=== PATIENT | male | born 1955 | race Caucasian/White ===

== ENCOUNTER 2016-09-22 07:51 | Outpatient (CLI) | payer OTHER | END 2016-09-22 07:52 | disposition home or self-care (01) | DX: I48.91 Unspecified atrial fibrillation (principal); Z95.2 Presence of prosthetic heart valve ==

== ENCOUNTER 2016-10-20 07:36 | Outpatient (CLI) | payer OTHER | END 2016-10-20 07:37 | disposition home or self-care (01) | LOC: LAB 07:36 | PROVIDERS: ATTEND Internal Medicine | DX: I48.91 Unspecified atrial fibrillation (principal); Z95.2 Presence of prosthetic heart valve | CPT/HCPCS: 85610 ==

== ENCOUNTER 2016-11-17 07:42 | Outpatient (CLI) | payer OTHER | END 2016-11-17 07:43 | disposition home or self-care (01) | DX: I48.91 Unspecified atrial fibrillation (principal); Z95.2 Presence of prosthetic heart valve ==

== ENCOUNTER 2016-12-15 07:40 | Outpatient (CLI) | payer OTHER | END 2016-12-15 07:41 | disposition home or self-care (01) | DX: I48.91 Unspecified atrial fibrillation (principal); Z95.2 Presence of prosthetic heart valve ==

== ENCOUNTER 2017-01-19 07:37 | Outpatient (CLI) | payer OTHER | END 2017-01-19 07:38 | disposition home or self-care (01) | LOC: LAB 07:37 | PROVIDERS: ATTEND Internal Medicine | DX: I48.91 Unspecified atrial fibrillation (principal); Z95.2 Presence of prosthetic heart valve | CPT/HCPCS: 85610 ==

== ENCOUNTER 2017-02-13 08:01 | Outpatient (CLI) | payer OTHER | END 2017-02-13 08:02 | disposition home or self-care (01) | LOC: LAB 08:01 | PROVIDERS: ATTEND Internal Medicine | DX: I48.91 Unspecified atrial fibrillation (principal); Z95.2 Presence of prosthetic heart valve | CPT/HCPCS: 85610 ==

== ENCOUNTER 2017-03-27 07:35 | Outpatient (CLI) | payer OTHER | END 2017-03-27 07:36 | disposition home or self-care (01) | LOC: LAB 07:35 | PROVIDERS: ATTEND Internal Medicine | DX: I48.91 Unspecified atrial fibrillation (principal); Z95.2 Presence of prosthetic heart valve | CPT/HCPCS: 85610 ==

== ENCOUNTER 2017-05-08 07:46 | Outpatient (CLI) | payer OTHER | END 2017-05-08 07:47 | disposition home or self-care (01) | LOC: LAB 07:46 | PROVIDERS: ATTEND Internal Medicine | DX: I48.91 Unspecified atrial fibrillation (principal); Z95.2 Presence of prosthetic heart valve | CPT/HCPCS: 85610 ==

== ENCOUNTER 2017-06-19 08:03 | Outpatient (CLI) | payer OTHER | END 2017-06-19 08:04 | disposition home or self-care (01) | LOC: LAB 08:03 | PROVIDERS: ATTEND Internal Medicine | DX: I48.91 Unspecified atrial fibrillation (principal); Z95.2 Presence of prosthetic heart valve | CPT/HCPCS: 85610 ==

== ENCOUNTER 2017-08-14 08:26 | Outpatient (CLI) | payer OTHER | END 2017-08-14 08:27 | disposition home or self-care (01) | LOC: LAB 08:26 | PROVIDERS: ATTEND Internal Medicine | DX: I48.91 Unspecified atrial fibrillation (principal) | CPT/HCPCS: 85610 ==

== ENCOUNTER 2017-08-28 08:10 | Outpatient (CLI) | payer OTHER | END 2017-08-28 08:11 | disposition home or self-care (01) | LOC: LAB 08:10 | PROVIDERS: ATTEND Family Medicine | DX: I48.91 Unspecified atrial fibrillation (principal); Z95.2 Presence of prosthetic heart valve; Z51.81 Encounter for therapeutic drug level monitoring; Z79.01 Long term (current) use of anticoagulants | CPT/HCPCS: 85610 ==

== ENCOUNTER 2017-10-16 07:42 | Outpatient (CLI) | payer OTHER | END 2017-10-16 07:43 | disposition home or self-care (01) | LOC: LAB 07:42 | PROVIDERS: ATTEND Family Medicine | DX: I48.91 Unspecified atrial fibrillation (principal); Z95.2 Presence of prosthetic heart valve; Z51.81 Encounter for therapeutic drug level monitoring; Z79.01 Long term (current) use of anticoagulants | CPT/HCPCS: 85610 ==

== ENCOUNTER 2017-11-27 08:00 | Outpatient (CLI) | payer OTHER | END 2017-11-27 08:01 | disposition home or self-care (01) | LOC: LAB 08:00 | PROVIDERS: ATTEND Family Medicine | DX: I48.91 Unspecified atrial fibrillation (principal); Z95.2 Presence of prosthetic heart valve; Z51.81 Encounter for therapeutic drug level monitoring; Z79.01 Long term (current) use of anticoagulants | CPT/HCPCS: 85610 ==

== ENCOUNTER 2018-01-08 07:45 | Outpatient (CLI) | payer OTHER | END 2018-01-08 07:46 | disposition home or self-care (01) | LOC: LAB 07:45 | PROVIDERS: ATTEND Family Medicine | DX: I48.91 Unspecified atrial fibrillation (principal); Z95.2 Presence of prosthetic heart valve; Z51.81 Encounter for therapeutic drug level monitoring; Z79.01 Long term (current) use of anticoagulants | CPT/HCPCS: 85610 ==

== ENCOUNTER 2018-02-12 08:06 | Outpatient (CLI) | payer OTHER | END 2018-02-12 08:07 | disposition home or self-care (01) | LOC: LAB 08:06 | PROVIDERS: ATTEND Family Medicine | DX: I48.91 Unspecified atrial fibrillation (principal); Z95.2 Presence of prosthetic heart valve; Z51.81 Encounter for therapeutic drug level monitoring; Z79.01 Long term (current) use of anticoagulants | CPT/HCPCS: 85610 ==

== ENCOUNTER 2018-03-26 07:42 | Outpatient (CLI) | payer OTHER | END 2018-03-26 07:43 | disposition home or self-care (01) | LOC: LAB 07:42 | PROVIDERS: ATTEND Family Medicine | DX: I48.91 Unspecified atrial fibrillation (principal); Z95.2 Presence of prosthetic heart valve; Z51.81 Encounter for therapeutic drug level monitoring; Z79.01 Long term (current) use of anticoagulants | CPT/HCPCS: 85610 ==

== ENCOUNTER 2018-05-07 07:47 | Outpatient (CLI) | payer OTHER | END 2018-05-07 07:48 | disposition home or self-care (01) | LOC: LAB 07:47 | PROVIDERS: ATTEND Family Medicine | DX: I48.91 Unspecified atrial fibrillation (principal) | CPT/HCPCS: 85610 ==

== ENCOUNTER 2018-05-25 10:19 | Outpatient (CLI) | payer OTHER | END 2018-05-25 10:20 | disposition home or self-care (01) | LOC: LAB.F 10:19 | PROVIDERS: ATTEND Family Medicine | DX: I48.91 Unspecified atrial fibrillation (principal) | CPT/HCPCS: 85610 ==

== ENCOUNTER 2018-06-25 08:30 | Outpatient (CLI) | payer OTHER | END 2018-06-25 08:31 | disposition home or self-care (01) | LOC: LAB.F 08:30 | PROVIDERS: ATTEND Family Medicine | DX: I48.91 Unspecified atrial fibrillation (principal) | CPT/HCPCS: 85610 ==

== ENCOUNTER 2018-07-23 13:46 | Outpatient (CLI) | payer OTHER ==
[2018-07-23 18:05] LABS: INR 3.3 (0.8-1.2); PT - PROTHROMBIN TIME 36.4 secs (9.9-12.6)
== END 2018-07-23 13:47 | disposition home or self-care (01) ==
LOC: LAB.F 13:46
PROVIDERS: ATTEND Family Medicine
DX: I48.91 Unspecified atrial fibrillation (principal); Z51.81 Encounter for therapeutic drug level monitoring; Z79.01 Long term (current) use of anticoagulants
CPT/HCPCS: 36415; 85610

== ENCOUNTER 2018-08-13 08:30 | Outpatient (CLI) | payer OTHER | END 2018-08-13 08:31 | disposition home or self-care (01) | LOC: LAB.F 08:30 | PROVIDERS: ATTEND Family Medicine | DX: I48.91 Unspecified atrial fibrillation (principal) | CPT/HCPCS: 85610 ==

== ENCOUNTER 2018-10-25 08:19 | Outpatient (CLI) | payer OTHER | END 2018-10-25 08:20 | disposition home or self-care (01) | LOC: LAB.F 08:19 | PROVIDERS: ATTEND Family Medicine | DX: I48.91 Unspecified atrial fibrillation (principal) | CPT/HCPCS: 85610 ==

== ENCOUNTER 2018-12-06 08:53 | Outpatient (CLI) | payer OTHER | END 2018-12-06 08:54 | disposition home or self-care (01) | LOC: LAB.F 08:53 | PROVIDERS: ATTEND Family Medicine | DX: I48.91 Unspecified atrial fibrillation (principal) | CPT/HCPCS: 85610 ==

== ENCOUNTER 2018-12-13 07:52 | Outpatient (CLI) | payer OTHER | END 2018-12-13 07:53 | disposition home or self-care (01) | LOC: LAB.F 07:52 | PROVIDERS: ATTEND Family Medicine | DX: I48.91 Unspecified atrial fibrillation (principal) | CPT/HCPCS: 85610 ==

== ENCOUNTER 2019-01-03 07:54 | Outpatient (CLI) | payer OTHER | END 2019-01-03 07:55 | disposition home or self-care (01) | LOC: LAB.F 07:54 | PROVIDERS: ATTEND Family Medicine | DX: I48.91 Unspecified atrial fibrillation (principal) | CPT/HCPCS: 85610 ==

== ENCOUNTER 2019-01-17 07:30 | Outpatient (CLI) | payer OTHER | END 2019-01-17 07:31 | disposition home or self-care (01) | LOC: LAB.F 07:30 | PROVIDERS: ATTEND Family Medicine | DX: I48.91 Unspecified atrial fibrillation (principal) | CPT/HCPCS: 85610 ==

== ENCOUNTER 2019-01-31 07:35 | Outpatient (CLI) | payer OTHER | END 2019-01-31 07:36 | disposition home or self-care (01) | LOC: LAB.F 07:35 | PROVIDERS: ATTEND Family Medicine | DX: I48.91 Unspecified atrial fibrillation (principal) | CPT/HCPCS: 85610 ==

== ENCOUNTER 2019-02-21 08:10 | Outpatient (CLI) | payer OTHER | END 2019-02-21 08:11 | disposition home or self-care (01) | LOC: LAB.F 08:10 | PROVIDERS: ATTEND Family Medicine | DX: I48.91 Unspecified atrial fibrillation (principal) | CPT/HCPCS: 85610 ==

== ENCOUNTER 2019-03-07 07:49 | Outpatient (CLI) | payer OTHER | END 2019-03-07 07:50 | disposition home or self-care (01) | LOC: LAB.F 07:49 | PROVIDERS: ATTEND Family Medicine | DX: I48.91 Unspecified atrial fibrillation (principal) | CPT/HCPCS: 85610 ==

== ENCOUNTER 2019-04-04 07:59 | Outpatient (CLI) | payer OTHER | END 2019-04-04 08:00 | disposition home or self-care (01) | LOC: LAB.S 07:59 | PROVIDERS: ATTEND Family Medicine | DX: I48.91 Unspecified atrial fibrillation (principal) | CPT/HCPCS: 85610 ==

== ENCOUNTER 2019-05-16 07:41 | Outpatient (CLI) | payer OTHER | END 2019-05-16 07:42 | disposition home or self-care (01) | LOC: LAB.S 07:41 | PROVIDERS: ATTEND Family Medicine | DX: I48.91 Unspecified atrial fibrillation (principal) | CPT/HCPCS: 85610 ==

== ENCOUNTER 2019-06-04 07:47 | Outpatient (CLI) | payer OTHER | END 2019-06-04 07:48 | disposition home or self-care (01) | LOC: LAB.S 07:47 | PROVIDERS: ATTEND Family Medicine | DX: I48.91 Unspecified atrial fibrillation (principal) | CPT/HCPCS: 85610 ==

== ENCOUNTER 2019-06-13 07:09 | Outpatient (CLI) | payer OTHER | END 2019-06-13 07:10 | disposition home or self-care (01) | LOC: LAB.S 07:09 | PROVIDERS: ATTEND Family Medicine | DX: I48.91 Unspecified atrial fibrillation (principal) | CPT/HCPCS: 85610 ==

== ENCOUNTER 2019-06-14 07:28 | Outpatient (CLI) | payer OTHER | END 2019-06-14 07:29 | disposition home or self-care (01) | LOC: LAB.S 07:28 | PROVIDERS: ATTEND Family Medicine | DX: I48.91 Unspecified atrial fibrillation (principal) | CPT/HCPCS: 85610 ==

== ENCOUNTER 2019-06-18 07:40 | Outpatient (CLI) | payer OTHER | END 2019-06-18 07:41 | disposition home or self-care (01) | LOC: LAB.S 07:40 | PROVIDERS: ATTEND Family Medicine | DX: I48.91 Unspecified atrial fibrillation (principal) | CPT/HCPCS: 85610 ==

== ENCOUNTER 2019-06-24 07:21 | Outpatient (CLI) | payer OTHER | END 2019-06-24 07:22 | disposition home or self-care (01) | LOC: LAB.S 07:21 | PROVIDERS: ATTEND Family Medicine | DX: I48.91 Unspecified atrial fibrillation (principal) | CPT/HCPCS: 85610 ==

== ENCOUNTER 2019-07-08 07:10 | Outpatient (CLI) | payer OTHER | END 2019-07-08 07:11 | disposition home or self-care (01) | LOC: LAB.S 07:10 | PROVIDERS: ATTEND Family Medicine | DX: I48.91 Unspecified atrial fibrillation (principal) | CPT/HCPCS: 85610 ==

== ENCOUNTER 2019-08-19 08:33 | Outpatient (CLI) | payer OTHER | END 2019-08-19 08:34 | disposition home or self-care (01) | LOC: LAB.S 08:33 | PROVIDERS: ATTEND Family Medicine | DX: I48.91 Unspecified atrial fibrillation (principal); Z51.81 Encounter for therapeutic drug level monitoring; Z79.01 Long term (current) use of anticoagulants | CPT/HCPCS: 85610 ==

== ENCOUNTER 2019-09-09 07:38 | Outpatient (CLI) | payer OTHER | END 2019-09-09 07:39 | disposition home or self-care (01) | LOC: LAB.S 07:38 | PROVIDERS: ATTEND Family Medicine | DX: I48.91 Unspecified atrial fibrillation (principal) | CPT/HCPCS: 85610 ==

== ENCOUNTER 2019-10-09 08:18 | Outpatient (CLI) | payer BC | END 2019-10-09 08:19 | disposition home or self-care (01) | LOC: LAB.S 08:18 | PROVIDERS: ATTEND Family Medicine | DX: I48.91 Unspecified atrial fibrillation (principal) | CPT/HCPCS: 85610 ==

== ENCOUNTER 2019-11-13 12:04 | Outpatient (CLI) | payer BC | END 2019-11-13 23:59 | disposition home or self-care (01) | LOC: LAB.S 12:04 | PROVIDERS: ATTEND Family Medicine | DX: I48.91 Unspecified atrial fibrillation (principal) | CPT/HCPCS: 85610 ==

== ENCOUNTER 2020-03-18 07:14 | Outpatient (CLI) | payer BC | END 2020-03-18 07:15 | disposition home or self-care (01) | LOC: LAB.S 07:14 | PROVIDERS: ATTEND Family Medicine | DX: I48.91 Unspecified atrial fibrillation (principal) | CPT/HCPCS: 85610 ==

== ENCOUNTER 2020-06-03 08:25 | Outpatient (CLI) | payer BC | END 2020-06-03 08:26 | disposition home or self-care (01) | LOC: LAB.S 08:25 | PROVIDERS: ATTEND Family Medicine | DX: I48.91 Unspecified atrial fibrillation (principal) | CPT/HCPCS: 85610 ==

== ENCOUNTER 2020-07-08 08:24 | Outpatient (CLI) | payer BC | END 2020-07-08 08:25 | disposition home or self-care (01) | LOC: LAB.S 08:24 | PROVIDERS: ATTEND Family Medicine | DX: I48.91 Unspecified atrial fibrillation (principal) | CPT/HCPCS: 85610 ==

== ENCOUNTER 2020-08-12 07:13 | Outpatient (CLI) | payer BC | END 2020-08-12 07:14 | disposition home or self-care (01) | LOC: LAB.S 07:13 | PROVIDERS: ATTEND Family Medicine | DX: I48.91 Unspecified atrial fibrillation (principal) | CPT/HCPCS: 85610 ==

== ENCOUNTER 2020-10-14 07:20 | Outpatient (CLI) | payer BC | END 2020-10-14 07:21 | disposition home or self-care (01) | LOC: LAB.S 07:20 | PROVIDERS: ATTEND Family Medicine | DX: I48.91 Unspecified atrial fibrillation (principal) | CPT/HCPCS: 85610 ==

== ENCOUNTER 2020-11-25 07:14 | Outpatient (CLI) | payer BC | END 2020-11-25 07:15 | disposition home or self-care (01) | LOC: LAB.S 07:14 | PROVIDERS: ATTEND Family Medicine | DX: I48.91 Unspecified atrial fibrillation (principal) | CPT/HCPCS: 85610 ==

== ENCOUNTER 2021-01-06 07:21 | Outpatient (CLI) | payer BC | END 2021-01-06 07:22 | disposition home or self-care (01) | LOC: LAB.S 07:21 | PROVIDERS: ATTEND Family Medicine | DX: I48.91 Unspecified atrial fibrillation (principal) | CPT/HCPCS: 36416; 85610 ==

== ENCOUNTER 2021-02-17 07:09 | Outpatient (CLI) | payer BC | END 2021-02-17 07:10 | disposition home or self-care (01) | LOC: LAB.S 07:09 | PROVIDERS: ATTEND Family Medicine | DX: I48.91 Unspecified atrial fibrillation (principal) | CPT/HCPCS: 36416; 85610 ==

== ENCOUNTER 2021-04-21 07:17 | Outpatient (CLI) | payer BC | END 2021-04-21 07:18 | disposition home or self-care (01) | LOC: LAB.S 07:17 | PROVIDERS: ATTEND Family Medicine | DX: I48.91 Unspecified atrial fibrillation (principal) | CPT/HCPCS: 36416; 85610 ==

== ENCOUNTER 2021-06-02 07:29 | Outpatient (CLI) | payer BC | END 2021-06-02 07:30 | disposition home or self-care (01) | LOC: LAB.S 07:29 | PROVIDERS: ATTEND Family Medicine | DX: I48.91 Unspecified atrial fibrillation (principal) | CPT/HCPCS: 36416; 85610 ==

== ENCOUNTER 2021-07-14 07:09 | Outpatient (CLI) | payer BC | END 2021-07-14 07:10 | disposition home or self-care (01) | LOC: LAB.S 07:09 | PROVIDERS: ATTEND Family Medicine | DX: I48.91 Unspecified atrial fibrillation (principal) | CPT/HCPCS: 36416; 85610 ==

== ENCOUNTER 2021-08-11 07:08 | Outpatient (CLI) | payer BC | END 2021-08-11 07:09 | disposition home or self-care (01) | LOC: LAB.S 07:08 | PROVIDERS: ATTEND Family Medicine | DX: I48.91 Unspecified atrial fibrillation (principal) | CPT/HCPCS: 36416; 85610 ==

== ENCOUNTER 2021-09-08 08:11 | Outpatient (CLI) | payer BC | END 2021-09-08 08:12 | disposition home or self-care (01) | LOC: LAB.S 08:11 | PROVIDERS: ATTEND Family Medicine | DX: I48.91 Unspecified atrial fibrillation (principal) | CPT/HCPCS: 36416; 85610 ==

== ENCOUNTER 2021-10-20 07:24 | Outpatient (CLI) | payer BC | END 2021-10-20 07:25 | disposition home or self-care (01) | LOC: LAB.S 07:24 | PROVIDERS: ATTEND Family Medicine | DX: I48.91 Unspecified atrial fibrillation (principal) | CPT/HCPCS: 36416; 85610 ==

== ENCOUNTER 2021-11-10 07:18 | Outpatient (CLI) | payer BC | END 2021-11-10 07:19 | disposition home or self-care (01) | LOC: LAB.S 07:18 | PROVIDERS: ATTEND Family Medicine | DX: I48.91 Unspecified atrial fibrillation (principal) | CPT/HCPCS: 36416; 85610 ==

== ENCOUNTER 2021-11-24 07:21 | Outpatient (CLI) | payer OTHER | END 2021-11-24 07:22 | disposition home or self-care (01) | LOC: LAB.S 07:21 | PROVIDERS: ATTEND Family Medicine | DX: I48.91 Unspecified atrial fibrillation (principal) | CPT/HCPCS: 36416; 85610 ==

== ENCOUNTER 2021-12-23 07:24 | Outpatient (CLI) | payer OTHER | END 2021-12-23 07:25 | disposition home or self-care (01) | LOC: LAB.S 07:24 | PROVIDERS: ATTEND Family Medicine | DX: I48.91 Unspecified atrial fibrillation (principal) | CPT/HCPCS: 36416; 85610 ==

== ENCOUNTER 2022-01-20 07:35 | Outpatient (CLI) | payer MEDICARE, OTHER | END 2022-01-20 07:36 | disposition home or self-care (01) | LOC: LAB.S 07:35 | PROVIDERS: ATTEND Family Medicine | DX: I48.91 Unspecified atrial fibrillation (principal) | CPT/HCPCS: 36416; 85610 ==

== ENCOUNTER 2022-02-24 07:24 | Outpatient (CLI) | payer MEDICARE, OTHER | END 2022-02-24 07:25 | disposition home or self-care (01) | LOC: LAB.S 07:24 | PROVIDERS: ATTEND Family Medicine | DX: I48.91 Unspecified atrial fibrillation (principal) | CPT/HCPCS: 36416; 85610 ==

== ENCOUNTER 2022-04-13 07:30 | Outpatient (CLI) | payer MEDICARE, OTHER | END 2022-04-13 07:31 | disposition home or self-care (01) | LOC: LAB.S 07:30 | PROVIDERS: ATTEND Family Medicine | DX: I48.91 Unspecified atrial fibrillation (principal) | CPT/HCPCS: 36416; 85610 ==

== ENCOUNTER 2022-05-23 07:25 | Outpatient (CLI) | payer MEDICARE, OTHER | END 2022-05-23 07:26 | disposition home or self-care (01) | LOC: LAB.S 07:25 | PROVIDERS: ATTEND Family Medicine | DX: I48.91 Unspecified atrial fibrillation (principal) | CPT/HCPCS: 36416; 85610 ==

== ENCOUNTER 2022-06-21 07:18 | Outpatient (CLI) | payer MEDICARE, OTHER | END 2022-06-21 07:19 | disposition home or self-care (01) | LOC: LAB.S 07:18 | PROVIDERS: ATTEND Family Medicine | DX: I48.91 Unspecified atrial fibrillation (principal) | CPT/HCPCS: 36416; 85610 ==

== ENCOUNTER 2022-07-12 07:51 | Outpatient (CLI) | payer MEDICARE, OTHER | END 2022-07-12 07:52 | disposition home or self-care (01) | LOC: LAB.S 07:51 | PROVIDERS: ATTEND Family Medicine | DX: I48.91 Unspecified atrial fibrillation (principal) | CPT/HCPCS: 36416; 85610 ==

== ENCOUNTER 2022-08-09 07:58 | Outpatient (CLI) | payer MEDICARE, OTHER | END 2022-08-09 07:59 | disposition home or self-care (01) | LOC: LAB.S 07:58 | PROVIDERS: ATTEND Family Medicine | DX: I48.91 Unspecified atrial fibrillation (principal) | CPT/HCPCS: 36416; 85610 ==

== ENCOUNTER 2022-09-07 07:51 | Outpatient (CLI) | payer MEDICARE, OTHER | END 2022-09-07 07:52 | disposition home or self-care (01) | LOC: LAB.S 07:51 | PROVIDERS: ATTEND Family Medicine | DX: I48.91 Unspecified atrial fibrillation (principal) | CPT/HCPCS: 36416; 85610 ==

== ENCOUNTER 2022-09-21 08:47 | Outpatient (CLI) | payer MEDICARE, OTHER | END 2022-09-21 08:48 | disposition home or self-care (01) | LOC: LAB 08:47 | PROVIDERS: ATTEND Family Medicine | DX: I48.91 Unspecified atrial fibrillation (principal) | CPT/HCPCS: 36416; 85610 ==

== ENCOUNTER 2022-10-12 08:08 | Outpatient (CLI) | payer MEDICARE, OTHER | END 2022-10-12 08:09 | disposition home or self-care (01) | LOC: LAB.S 08:08 | PROVIDERS: ATTEND Family Medicine | DX: I48.91 Unspecified atrial fibrillation (principal) | CPT/HCPCS: 36416; 85610 ==

== ENCOUNTER 2022-11-09 08:32 | Outpatient (CLI) | payer MEDICARE, OTHER | END 2022-11-09 08:33 | disposition home or self-care (01) | LOC: LAB.S 08:32 | PROVIDERS: ATTEND Family Medicine | DX: I48.91 Unspecified atrial fibrillation (principal) | CPT/HCPCS: 36416; 85610 ==

== ENCOUNTER 2022-12-07 08:15 | Outpatient (CLI) | payer MEDICARE, OTHER | END 2022-12-07 08:16 | disposition home or self-care (01) | LOC: LAB.S 08:15 | PROVIDERS: ATTEND Family Medicine | DX: I48.91 Unspecified atrial fibrillation (principal) | CPT/HCPCS: 36416; 85610 ==

== ENCOUNTER 2022-12-28 08:16 | Outpatient (CLI) | payer MEDICARE, OTHER | END 2022-12-28 08:17 | disposition home or self-care (01) | LOC: LAB.S 08:16 | PROVIDERS: ATTEND Family Medicine | DX: I48.91 Unspecified atrial fibrillation (principal) | CPT/HCPCS: 36416; 85610 ==

== ENCOUNTER 2023-01-25 07:52 | Outpatient (CLI) | payer MEDICARE, OTHER | END 2023-01-25 07:53 | disposition home or self-care (01) | LOC: LAB.S 07:52 | PROVIDERS: ATTEND Family Medicine | DX: I48.91 Unspecified atrial fibrillation (principal) | CPT/HCPCS: 36416; 85610 ==

== ENCOUNTER 2023-02-16 12:53 | Outpatient (CLI) | payer MEDICARE, OTHER | END 2023-02-16 12:54 | disposition home or self-care (01) | LOC: RT 12:53 | PROVIDERS: ATTEND Internal Medicine Cardiovascular Disease | DX: I48.91 Unspecified atrial fibrillation (principal) | CPT/HCPCS: 93005 ==

== ENCOUNTER 2023-02-22 07:52 | Outpatient (CLI) | payer MEDICARE, OTHER | END 2023-02-22 07:53 | disposition home or self-care (01) | LOC: LAB.S 07:52 | PROVIDERS: ATTEND Family Medicine | DX: I48.91 Unspecified atrial fibrillation (principal) | CPT/HCPCS: 36416; 85610 ==

== ENCOUNTER 2023-05-08 08:05 | Outpatient (CLI) | payer MEDICARE, OTHER | END 2023-05-08 08:06 | disposition home or self-care (01) | LOC: LAB.S 08:05 | PROVIDERS: ATTEND Family Medicine | DX: I48.91 Unspecified atrial fibrillation (principal) | CPT/HCPCS: 36416; 85610 ==

== ENCOUNTER 2023-05-22 08:06 | Outpatient (CLI) | payer MEDICARE, OTHER | END 2023-05-22 08:07 | disposition home or self-care (01) | LOC: LAB.S 08:06 | PROVIDERS: ATTEND Family Medicine | DX: I48.91 Unspecified atrial fibrillation (principal) | CPT/HCPCS: 36416; 85610 ==

== ENCOUNTER 2023-06-12 07:48 | Outpatient (CLI) | payer MEDICARE, OTHER | END 2023-06-12 07:49 | disposition home or self-care (01) | LOC: LAB.S 07:48 | PROVIDERS: ATTEND Family Medicine | DX: I48.91 Unspecified atrial fibrillation (principal) | CPT/HCPCS: 36416; 85610 ==

== ENCOUNTER 2023-07-03 07:52 | Outpatient (CLI) | payer MEDICARE, OTHER | END 2023-07-03 07:53 | disposition home or self-care (01) | LOC: LAB.S 07:52 | PROVIDERS: ATTEND Family Medicine | DX: I48.91 Unspecified atrial fibrillation (principal) | CPT/HCPCS: 36416; 85610 ==

== ENCOUNTER 2023-07-31 07:42 | Outpatient (CLI) | payer MEDICARE, OTHER | END 2023-07-31 07:43 | disposition home or self-care (01) | LOC: LAB.S 07:42 | PROVIDERS: ATTEND Family Medicine | DX: I48.91 Unspecified atrial fibrillation (principal) | CPT/HCPCS: 36416; 85610 ==

== ENCOUNTER 2023-09-07 08:19 | Outpatient (CLI) | payer MEDICARE, OTHER | END 2023-09-07 08:20 | disposition home or self-care (01) | LOC: LAB.S 08:19 | PROVIDERS: ATTEND Family Medicine | DX: I48.91 Unspecified atrial fibrillation (principal) | CPT/HCPCS: 36416; 85610 ==

== ENCOUNTER 2023-10-10 08:04 | Outpatient (CLI) | payer MEDICARE, OTHER | END 2023-10-10 08:05 | disposition home or self-care (01) | LOC: LAB.S 08:04 | PROVIDERS: ATTEND Family Medicine | DX: I48.91 Unspecified atrial fibrillation (principal) | CPT/HCPCS: 36416; 85610 ==

== ENCOUNTER 2023-11-14 08:31 | Outpatient (CLI) | payer MEDICARE, OTHER | END 2023-11-14 08:32 | disposition home or self-care (01) | LOC: LAB.S 08:31 | PROVIDERS: ATTEND Family Medicine | DX: I48.91 Unspecified atrial fibrillation (principal) | CPT/HCPCS: 36416; 85610 ==

== ENCOUNTER 2023-12-28 08:51 | Outpatient (CLI) | payer MEDICARE, OTHER | END 2023-12-28 08:52 | disposition home or self-care (01) | LOC: LAB.S 08:51 | PROVIDERS: ATTEND Family Medicine | DX: I48.91 Unspecified atrial fibrillation (principal) | CPT/HCPCS: 36416; 85610 ==

== ENCOUNTER 2024-02-29 07:31 | Outpatient (CLI) | payer MEDICARE, OTHER | END 2024-02-29 07:32 | disposition home or self-care (01) | LOC: LAB.S 07:31 | PROVIDERS: ATTEND Family Medicine | DX: I48.91 Unspecified atrial fibrillation (principal) | CPT/HCPCS: 36416; 85610 ==

== ENCOUNTER 2024-03-15 08:49 | Outpatient (CLI) | payer MEDICARE, OTHER | END 2024-03-15 08:50 | disposition home or self-care (01) | LOC: LAB.S 08:49 | PROVIDERS: ATTEND Family Medicine | DX: I48.91 Unspecified atrial fibrillation (principal) | CPT/HCPCS: 36416; 85610 ==

== ENCOUNTER 2024-04-01 07:22 | Outpatient (CLI) | payer MEDICARE, OTHER | END 2024-04-01 07:23 | disposition home or self-care (01) | LOC: LAB.S 07:22 | PROVIDERS: ATTEND Family Medicine | DX: I48.91 Unspecified atrial fibrillation (principal) | CPT/HCPCS: 36416; 85610 ==

== ENCOUNTER 2024-04-29 07:21 | Outpatient (CLI) | payer MEDICARE, OTHER | END 2024-04-29 07:22 | disposition home or self-care (01) | LOC: LAB.S 07:21 | PROVIDERS: ATTEND Family Medicine | DX: I48.91 Unspecified atrial fibrillation (principal) | CPT/HCPCS: 36416; 85610 ==

== ENCOUNTER 2024-05-03 07:55 | Outpatient (CLI) | payer MEDICARE, OTHER | END 2024-05-03 07:56 | disposition home or self-care (01) | LOC: LAB.S 07:55 | PROVIDERS: ATTEND Family Medicine | DX: I48.91 Unspecified atrial fibrillation (principal) | CPT/HCPCS: 36416; 85610 ==

== ENCOUNTER 2024-05-15 08:41 | Outpatient (CLI) | payer MEDICARE, OTHER | END 2024-05-15 08:42 | disposition home or self-care (01) | LOC: LAB 08:41 | PROVIDERS: ATTEND Family Medicine | DX: I48.91 Unspecified atrial fibrillation (principal) | CPT/HCPCS: 36416; 85610 ==

== ENCOUNTER 2024-05-23 08:49 | Outpatient (CLI) | payer MEDICARE, OTHER | END 2024-05-23 08:50 | disposition home or self-care (01) | LOC: LAB 08:49 | PROVIDERS: ATTEND Family Medicine | DX: I48.91 Unspecified atrial fibrillation (principal) | CPT/HCPCS: 36416; 85610 ==

== ENCOUNTER 2024-05-27 08:56 | Outpatient (CLI) | payer MEDICARE, OTHER | END 2024-05-27 08:57 | disposition home or self-care (01) | LOC: LAB 08:56 | PROVIDERS: ATTEND Family Medicine | DX: I48.91 Unspecified atrial fibrillation (principal) | CPT/HCPCS: 36416; 85610 ==